=== PATIENT | male | born 1965 | race Caucasian/White ===

== ENCOUNTER → 2017-03-26 | Day surgery (SDC) | payer OTHER ==
--- NOTE | 2017-03-25 13:22 | PCM.HPANE ---
Patient Data Surgeon Admitting Provider: Attending Provider:Juanjose Downs MD Primary Care Physician:Andra Other Provider:Janell Maynard Anesthesia Reason for Visit Abd Pain Ht/WT & BMI Body Mass Index Allergies Coded Allergies: No Known Drug Allergies (Verified Allergy, Unknown, 03/25/17) Past Anesthesia History Anesthesia History: Denies:: Abnormal Airway, Anesthesia Reactions, Difficult Intubation, Fam Anesthesia Reaction, Fam Malignant Hypertherm, Malignant Hyperthermia History History of ENT Problems?: No HEENT History: Denies:: Abnormal Airway Cataracts Difficult Intubation Dysphagia Glaucoma Hearing Problem Sinus Problem TMJ Denture Type: None Teeth Condition: Within Normal Limits Hx of Heart Problems?: No Cardiovascular History: Denies:: AICD Abdominal Aortic Aneurism Atrial Fibrillation Cardiac Surgery Chest Pain Congestive Heart Failure Coronary Artery Disease Edema Heart Murmur Hypertension Irregular Heartbeat Pacemaker Peripheral Vascular Rheumatic Fever Thrombophlebitis Valvular Heart Disease Hx of Respiratory Problem?: No Respiratory History: Denies:: Asthma COPD Chest Surgery Cough Dyspnea Emphysema Hemoptysis Oxygen Administration Pneumonia Pulmonary Embolism Tuberculosis Use of C-PAP Machine Use of Inhalers / NEBS Hx Neurologic Problems?: No Neurological History: Denies:: Alzheimer's Disease CVA Dementia Dizziness Headaches Multiple Sclerosis Parkinson's Disease Peripheral Neuropathy Seizures TIA Hx of GI Problems?: No Gastrointestinal History: Denies:: Cirrhosis Diverticulitis Gall Bladder Disease Gastroesphageal Reflux Gastrointestinal Bleeding Heartburn Hepatitis Hiatal Hernia Liver Disease Rectal Bleeding Hx of Problems?: No Genitourinary History: Denies:: HX of Hemodialysis Kidney Stones Urinary Tract Infection HX of Peritoneal Dialysis: No Male Hx: Denies:: Prostate Problems Scrotal Mass Testicular Surgery Skin History: Denies:: History Skin Disorders? Pressure Ulcers Hx Musculoskeletal Problems?: No Musculoskeletal History: Denies:: Back Injury Degenerative Joint Fibromyalgia Joint Replacement Musculoskeletal Trauma Myasthenia Gravis Osteoarthritis Rheumatoid Arthritis Systemic Lupus Hx of Psycho/Social Problems?: Yes Psycho Social History: Positive for:: Anxiety Denies:: Bipolar Disorder Hx Depression Suicide Attempt Hx Surgeries?: Yes Hx Any Other Health Problems?: No Other History: Denies:: Cancer Endocrine Disease Hospitalization Thyroid Disease Stop/Bang Risk Assessment Category Category 1A: Patient has history of documented sleep apnea, and HAS NOT received any narcotic, sedative or anesthesia administration during this stay. Category 1B: Patient has history of documented sleep apnea, and HAS received any narcotic , sedative or anesthesia administration during this stay Category 2: Patient has SUSPECTED Obstructive Sleep Apnea, and HAS received any narcotic , sedative or anesthesia administration during this stay. Category 3: Patient has SUSPECTED Obstructive Sleep Apnea and HAS NOT received narcotic, sedative or anesthesia administration during this stay. Category 4: Outpatient in Procedural Areas with known sleep apnea or who screen positive for High Risk via the STOP/BANG questionnaire. Exam Exam General Appearance: Alert, Oriented X3, Cooperative, Severe Distress HEENT/AIRWAY: MP 2, Neck Movement (from), Mouth Opening (wnl) Lungs: Clear to Auscultation Heart: Exam Unremarkable Plan Impression Patient chart reviewed, patient interviewed and anesthestic plan with risks, benefits, and alternatives discussed, and informed consent obtained. ASA Physical Status: ASA2 Mod Systemic Disease Anesthetic Plan: MAC Bene/Risks/Altern/Consents: Yes HP Complete Prior to Induction: Yes Gerard Winn MD Mar 25, 2017 13:22
[~2017-03-26] VITALS: Ht 170.2 cm; Wt 81.7 kg
[~2017-03-26] MED LIST: Lactated Ringer's 1,000 ML IV ONE; Lactated Ringer's 1,000 ML IV SCH; MetoCLOpramide 5 mg/mL 2 mL Inj IVPUSH PRN; Ondansetron 2 mg/mL 2 mL Inj IVPUSH PRN; Propofol 10,000 mCg/mL 20 mL Inj ONE; fentaNYL-PF 50 mCg/mL 2 mL Inj ONE
[2017-03-26 10:57] VITALS: BP 136/97; PULSE 79; RESP 16; O2SAT 97
--- NOTE | 2017-03-26 12:17 | PCM.ENDEGD ---
EGD Date of Service: Mar 26, 2017 Physician Juanjose Downs MD Pre Procedure Diagnosis: Early satiety bloating Post Procedure Dx & Findings: Esophagitis gastritis duodenitis Procedure Esophagogastroduodenoscopy PROCEDURE IN DETAIL: After proper sedation, Olympus video endoscope was inserted into patient's mouth and esophagus was successfully intubated. Scope introduced esophagus. Esophagus showed normal shiny whitish mucosa consistent with squamous cell component. Z line was at 40 cm from the incisors. Mild irregularity noted. Biopsies obtained . Scope further advanced to the stomach. The antrum showed some redness edema consistent with gastritis. She also had wall notable irritation with redness and edema. Biopsies obtained. Cardia fundus body antrum pylorus were all visualized. Retroflexion was done. Stomach was easily inflated and deflatable using air. Scope further advanced to the distal duodenum. Duodenal bulb revealed edema redness consistent with duodenitis. Biopsies obtained. Further distal, there were some streaks of redness edema consistent with more distal duodenitis. Biopsies obtained and placed in another bottle. Impression Esophagitis Gastritis Duodenitis Recommendation Await biopsies Presedation Assessment Risks and Benefits Informed consent was obtained from the patient after all risks and benefits including but not limited to drug reaction, infection, pain, bleeding, perforation, as well as alternatives were discussed. Patient monitoring Continuous pulse oximetry, cardiac monitoring, blood pressure monitoring, IV access, and oxygen at 2L per nasal cannula. Complications There were no periprocedural complications identified. Post Procedure Plan Post Procedure Recommendations 1. Restrict activities today. 2. Resume normal activities in the morning. 3. Resume medications. 4. GERD behavioral modification: - Avoid fatty, acidic, spicy, large meals - Do not lie down after meals - Do not eat or drink anything for at least 2 1/2 hours before going to bed at night - Discontinue tobacco and alcohol - Decrease or avoid caffeine - Avoid chocolate and mints - Decrease weight - Avoid aspirin and non steroidal anti-inflammatory agents (NSAID) such as Aleve, Advil, Mobic, Naproxen, Ibuprofen, etc 5. Add proton pump inhibitor. Take 30 minutes before 1st meal of the day. 6. Patient informed of normal post procedure side effects as bloating, drowsiness, blood streaking in the stool 7. If gastric biopsy reveal H.pylori, continue with appropriate treatment 8. If small bowel biopsy reveals celiac, continue with appropriate treatment 9. Please don't hesitate to call me with any questions Juanjose Downs MD Mar 26, 2017 12:17
--- NOTE | 2017-03-26 12:19 | PCM.ENDCOL ---
Colonoscopy Date of Service: Mar 26, 2017 Physician Juanjose Downs MD Pre Procedure Diagnosis: Screening Post Procedure Dx & Findings: Polyp hemorrhoids diverticulosis Procedure Colonoscopy PROCEDURE IN DETAIL: Prep adequate Withdrawal time 10 minutes After unremarkable rectal examination the Olympus video colonoscope was inserted patient's anal canal and was advanced to cecum. Landmarks were identified including the ileocecal valve and appendiceal orifice. Scope was withdrawn systematically. Visualized colonic mucosa showed healthy shiny mucosa with normal healthy-appearing vasculature. In the transverse colon, there was a 2 mm polyp which was removed completely using cold snare. Ascending colon there was a 2 mm polyp which was removed completely using cold snare. In the rectosigmoid junction, there were 3 polyps about 2-3 mm in size and they were all removed completely using cold snare. In the sigmoid colon there are few small diverticuli. In the rectum retroflexion was done which showed hemorrhoids. Anal canal was inspected carefully on the way out and hemorrhoids noted. Impression Polyp 5 status post complete removal Diverticuli Hemorrhoids Recommendation Repeat colonoscopy 3 years Diverticular diet Presedation Assessment Risks and Benefits Informed consent was obtained from the patient after all risks and benefits including but not limited to drug reaction, infection, pain, bleeding, perforation, as well as alternatives were discussed. Patient monitoring Continuous pulse oximetry, cardiac monitoring, blood pressure monitoring, IV access, and oxygen at 2L per nasal cannula. Complications There were no periprocedural complications identified. Post Procedure Plan Post Procedure Recommendations 1. Restrict activities today. 2. Resume normal activities in the morning. 3. Resume medications. 4. Patient informed of normal post procedure side effects as bloating, drowsiness, blood streaking in the stool. 5. average risk CRCS. If colon polyps come back as: -Hyperplastic- can repeat colonoscopy in 10 years -Tubular adenoma- repeat colonoscopy in 5 years -Tubulovillous/villous adenoma- repeat colonoscopy in 3 years -If any dysplasia- return to clinic as soon as possible 6. Please don't hesitate to call me with any questions. Juanjose Downs MD Mar 26, 2017 12:19
[2017-03-26 12:21] VITALS: BP 104/73; PULSE 78; RESP 15; O2SAT 98
[2017-03-26 12:29] VITALS: BP 126/86; PULSE 78; RESP 15; O2SAT 96
[2017-03-26 12:36] VITALS: BP 131/87; PULSE 64; RESP 15; O2SAT 96
--- NOTE | 2017-03-26 13:34 | PCM.ANEP1 ---
Post Anesthesia PACU Phase 1 Assessment Vital Signs Vital Signs Date Time Temp Pulse Resp B/P Pulse Ox O2 Delivery O2 Flow Rate FiO2 03/26/17 12:36 64 15 131/87 96 Room Air 03/26/17 12:29 78 15 126/86 96 Room Air 03/26/17 12:21 78 15 104/73 98 Room Air 03/26/17 10:57 36.9 79 16 136/97 97 Room Air Anesthetic Administered: GA Level of Alertness: Awake, talking MALHOTRA's with Equal Strength: Yes Pain: No Nausea or Vomiting: No CV Function & Hydration Stable: Yes Airway Device: Oxygen Delivery: Room Air Lungs: Clear to Auscultation PACU Phase 2 Assessment Complications: No Follow up Care: No Patient Instructions Provided: N/A Gerard Winn MD Mar 26, 2017 13:34
--- NOTE | 2017-04-01 09:33 | PATH ---
SURGICAL PATHOLOGY Attending Physician:Juanjose Downs M.D. CASE STATUS: Signed Out PATIENT NAME: YUMIKO HERMAN PID: [id number] : 1965 DATE COLLECTED:03/26/2017 20:53 SPECIMEN: 1: Esophagus, Biopsy 2: Gastric, Biopsy 3: Duodenum, Biopsy 4: Duodenum, Biopsy 5: Colon, Polyp 6: Colon, Polyp 7: Colon, Polyp CLINICAL HISTORY: 1). GASTRO-ESOPHAGEAL JUNCTION BIOPSY 2). GASTRIC BIOPSY 3). DUODENAL BULB BIOPSY 4). DISTAL DUODENUM 5). TRANSVERSE COLON POLYP X1 6). DESCENDING COLON POLYP X1 7). RECTO-SIGMOID COLON POLYP X3 FINAL DIAGNOSIS: 1.GASTROESOPHAGEAL JUNCTION BIOPSY: SQUAMOCOLUMNAR MUCOSA WITH MILD REACTIVE CHANGES CONSISTENT WITH REFLUX. Negative for intestinal metaplasia. Negative for dysplasia and malignancy. 2.GASTRIC BIOPSY: ANTRAL MUCOSA WITH NO DIAGNOSTIC ALTERATIONS. Negative for Helicobacter organisms on H&E stains. Negative for intestinal metaplasia. Negative for dysplasia and malignancy. 3.DUODENAL BULB BIOPSY: GASTRIC SURFACE CELL METAPLASIA. Negative for dysplasia and malignancy. 4.DISTAL DUODENUM BIOPSY: PATCHY MILD ACTIVE INFLAMMATION. Negative for parasites. Negative for dysplasia and malignancy. 5.TRANSVERSE COLON POLYP: TUBULAR ADENOMA. 6.DESCENDING COLON POLYP: TUBULAR ADENOMA. 7.RECTOSIGMOID COLON POLYPS: HYPERPLASTIC POLYPS. ICD10 K21.9 K29.80 D12.3 D12.4 K62.1 GROSS DESCRIPTION: Received seven formalin-filled containers, each labeled with the patient's name. 1. In a container labeled "GE junction", specimen consists of a 0.3 x 0.3 x 0.2 cm portion of tissue which is entirely submitted in cassette 1A. 2. In a container labeled "gastric" are two portions of tissue which aggregate to 0.3 x 0.3 x 0.2 cm. The specimen is entirely submitted in cassette 2A. 3. In a container labeled "duodenal bulb", specimen consists of two portions of tissue which aggregate to 0.4 x 0.3 x 0.2 cm. The specimen is entirely submitted in cassette 3A. 4. The specimen is sublabeled "distal duodenum", site confirmed per client, and consists of three portions of tissue which aggregate to 0.3 x 0.2 x 0.2 cm. The specimen is entirely submitted in cassette 4A. 5. In a container labeled "transverse polyp x1", specimen consists o a 0.3 x 0.3 x 0.3 cm portion of tissue which is entirely submitted in cassette 5A. 6. In a container labeled "descending colon polyp x1", specimen consists of a 0.3 x 0.2 x 0.2 cm portion of tissue which is entirely submitted in cassette 6A. 7.. In a container labeled "rectosigmoid polyp x3", specimen consists of three portions of tissue which aggregate to 0.3 x 0.3 x 0.3 cm. The specimen is entirely submitted in cassette 7A. ([facility] [place]:[id number]) MICRO DESCRIPTION: See diagnosis. ICD-9 CODES: CPT CODES: 1: 28458 2: 41086 3: 57189 4: 49239 5: 03135 6: 98040 7: 70242 Electronically Signed Out Leonarda Caldwell MD [facility] Pathology [facility], [place] [address] Technical component performed at [facility], [facility] [address], [place], [address]
== END | disposition home or self-care (01) ==
LOC: END 00:28
PROVIDERS: ATTEND Internal Medicine
DX: Z12.11 Encounter for screening for malignant neoplasm of colon (principal); Z80.0 Family history of malignant neoplasm of digestive organs; D12.3 Benign neoplasm of transverse colon; D12.4 Benign neoplasm of descending colon; K62.1 Rectal polyp; K64.9 Unspecified hemorrhoids; K20.9 Esophagitis, unspecified; K29.80 Duodenitis without bleeding; K21.9 Gastro-esophageal reflux disease without esophagitis; K59.00 Constipation, unspecified; F90.9 Attention-deficit hyperactivity disorder, unspecified type; F17.210 Nicotine dependence, cigarettes, uncomplicated; F10.21 Alcohol dependence, in remission; F12.90 Cannabis use, unspecified, uncomplicated; F41.9 Anxiety disorder, unspecified
CPT/HCPCS: 43239; 45380; 45385; 88305; J2250; J3010; J7120